=== PATIENT | female | born 1960 | race Caucasian/White ===

== ENCOUNTER 2022-03-16 15:32 | Outpatient (CLI) | payer OTHER, SELFPAY ==
[2022-03-16 22:03] LABS: Albumin* 5.1 g/dL (3.3-5.0)
[2022-03-16 22:04] LABS: Chloride* 97 mmol/L (96-114); Potassium* 4.5 mmol/L (3.6-5.1)
[2022-03-16 22:06] LABS: Bilirubin Total* 0.6 mg/dL (0.1-1.5); Creatinine* 0.5 mg/dL (0.5-1.5); Estimated Glomerular Filt Rate 106 ml/min; Total Protein* 7.9 g/dL (6.0-8.3)
[2022-03-16 22:07] LABS: Blood Urea Nitrogen* 13 mg/dL (7-30); Glucose* 81 mg/dL (60-115)
[2022-03-16 22:47] LABS: Sodium* 139 mmol/L (135-149)
[2022-03-16 22:49] LABS: Carbon Dioxide* 29 mmol/L (20-32); Cholesterol* 283 mg/dL (90-199)
[2022-03-16 22:50] LABS: Alanine Aminotransferase* 49 U/L (4-35); Alkaline Phosphatase* 59 U/L (40-150); Aspartate Amino Transferase* 45 U/L (12-35); Triglycerides* 81 mg/dL (40-149)
[2022-03-16 23:08] LABS: HDL Cholesterol* 199 mg/dL (>=50); LDL Cholesterol Calculated 68 mg/dL (<100)
== END 2022-03-16 15:33 | disposition home or self-care (01) ==
PROVIDERS: PCP Internal Medicine; Visit Provider Emergency Medicine
DX: E78.5 Hyperlipidemia, unspecified (principal); I10 Essential (primary) hypertension
CPT/HCPCS: 80053; 80061

== ENCOUNTER 2022-08-14 09:01 | Outpatient (CLI) | payer OTHER, SELFPAY ==
--- NOTE | 2022-08-14 09:15 | CRLHL7_ITS ---
For Patients: As a result of the Century Cures Act, medical imaging exams and procedure reports are released immediately into your electronic medical record. You may view this report before your referring provider. If you have questions, please contact your health care provider. BILATERAL DIGITAL SCREENING MAMMOGRAM WITH COMPUTER-AIDED DETECTION CLINICAL HISTORY: Routine screening exam. COMPARISON: 07/12/2021, 06/04/2020, 05/16/2019, 04/02/2018. TECHNIQUE: Digital mammogram in CC and MLO projections including computer-aided detection (CAD). BREAST COMPOSITION: The breasts are extremely dense, which lowers the sensitivity of mammography. FINDINGS: RIGHT Breast: No suspicious findings. LEFT Breast: Loose grouping of punctate calcifications within the lateral breast 7 cm from the nipple. IMPRESSION: LEFT breast calcifications. RECOMMENDATIONS: Spot compression magnification views of the calcifications in the LEFT breast in CC and ML projections. BI-RADS Category 0: Incomplete: Need additional Imaging Evaluation and/or Prior Mammograms for Comparison [facility] will contact the patient for follow-up. A lay language report of this examination will be provided to the patient. Dictated by Gagan Urbano MD @ 08/14/2022 11:07:26 AM jj/Dictated by: Gagan Urbano MD @ 08/14/2022 11:07:00 AM (Electronically Signed)
== END 2022-08-14 09:02 | disposition home or self-care (01) ==
LOC: MAMMO 09:02
PROVIDERS: PCP Internal Medicine; Visit Provider Internal Medicine
DX: Z12.31 Encounter for screening mammogram for malignant neoplasm of breast (principal); R92.2 Inconclusive mammogram; R92.1 Mammographic calcification found on diagnostic imaging of breast
CPT/HCPCS: 77063; 77067

== ENCOUNTER 2022-08-18 09:31 | Outpatient (CLI) | payer OTHER, SELFPAY ==
--- NOTE | 2022-08-18 09:45 | CRLHL7_ITS ---
For Patients: As a result of the Cures Act, medical imaging exams and procedure reports are released immediately into your electronic medical record. You may view this report before your referring provider. If you have questions, please contact your health care provider. DIGITAL DIAGNOSTIC LEFT MAMMOGRAM WITH COMPUTER-AIDED DETECTION CLINICAL HISTORY: LEFT breast calcifications. COMPARISON: 08/14/2022, 07/12/2021, 06/04/2020, 05/16/2019. TECHNIQUE: Digital LEFT mammogram in three projections. Computer-aided detection utilized. BREAST COMPOSITION: The breast is heterogeneously dense, which may obscure small masses. FINDINGS: Spot magnification CC/true lateral LEFT breast mammogram images submitted along with an open true lateral LEFT breast mammogram. Scattered punctate calcifications are present within the outer LEFT breast without pleomorphism. No suspicious mass. IMPRESSION: Loosely grouped punctate benign-appearing calcifications within the lateral LEFT breast. No evidence of malignancy. RECOMMENDATIONS: Annual BILATERAL screening mammography. Results and recommendations discussed with the patient. BI-RADS Category 2: Benign A lay language report of this examination will be provided to the patient. Dictated by Gagan Urbano MD @ 08/18/2022 11:41:09 AM jj/Dictated by: Gagan Urbano MD @ 08/18/2022 11:41:00 AM (Electronically Signed)
== END 2022-08-18 09:32 | disposition home or self-care (01) ==
LOC: MAMMO 09:32
PROVIDERS: PCP Internal Medicine; Visit Provider Emergency Medicine
DX: R92.1 Mammographic calcification found on diagnostic imaging of breast (principal); R92.2 Inconclusive mammogram
CPT/HCPCS: 77065

== ENCOUNTER 2022-11-15 15:40 | Outpatient (CLI) | payer OTHER, SELFPAY | END 2022-11-15 15:41 | disposition home or self-care (01) | PROVIDERS: PCP Emergency Medicine; Visit Provider Emergency Medicine | DX: Z00.00 Encounter for general adult medical examination without abnormal findings (principal); E83.52 Hypercalcemia; R77.9 Abnormality of plasma protein, unspecified; R74.01 Elevation of levels of liver transaminase levels; I10 Essential (primary) hypertension; E78.5 Hyperlipidemia, unspecified | CPT/HCPCS: 80048; 80076 ==

== ENCOUNTER 2022-11-23 14:10 | Outpatient (CLI) | payer OTHER, SELFPAY ==
--- NOTE | 2022-11-23 14:00 | CRLHL7_ITS ---
For Patients: As a result of the Century Cures Act, medical imaging exams and procedure reports are released immediately into your electronic medical record. You may view this report before your referring provider. If you have questions, please contact your health care provider. INDICATION: Lung cancer screening. History of smoking. High risk patient with greater than 25 pack-year smoking history. TECHNIQUE: Low-dose lung cancer screening non-contrast CT chest. Dose reduction techniques were used. COMPARISON: 07/12/2018 FINDINGS: NODULES: None. LUNGS AND PLEURA: Mild emphysematous changes. No infiltrate. MEDIASTINUM: No adenopathy. CORONARY ARTERY CALCIFICATION: None. LIMITED UPPER ABDOMEN: Normal. MUSCULOSKELETAL: Normal. IMPRESSION: Negative for lung cancer screening purposes. LUNG-RADS CATEGORY: 1: Negative. RADIOLOGIST RECOMMENDATION: Continue annual screening with low-dose CT chest in 12 months. Please note that all CT scans at this facility use dose modulation, iterative reconstruction, and/or weight-based dosing when appropriate to reduce radiation dose to as low as reasonably achievable. Dictated by Gagan Urbano MD @ 11/24/2022 12:30:23 PM (Electronically Signed)
== END 2022-11-23 14:11 | disposition home or self-care (01) ==
LOC: CT 14:11
PROVIDERS: PCP Emergency Medicine; Visit Provider Emergency Medicine
DX: Z12.2 Encounter for screening for malignant neoplasm of respiratory organs (principal); Z87.891 Personal history of nicotine dependence
CPT/HCPCS: 71271

== ENCOUNTER 2022-11-30 14:52 | Outpatient (CLI) | payer OTHER, SELFPAY | END 2022-11-30 14:53 | disposition home or self-care (01) | PROVIDERS: PCP Emergency Medicine; Visit Provider Emergency Medicine | DX: E83.52 Hypercalcemia (principal); R74.01 Elevation of levels of liver transaminase levels; I10 Essential (primary) hypertension; E78.5 Hyperlipidemia, unspecified; R77.9 Abnormality of plasma protein, unspecified | CPT/HCPCS: 82306; 82310; 83970; 84165 ==

== ENCOUNTER 2023-09-11 09:44 | Outpatient (CLI) | payer OTHER, SELFPAY ==
--- NOTE | 2023-09-11 09:45 | CRLHL7_ITS ---
For Patients: As a result of the Century Cures Act, medical imaging exams and procedure reports are released immediately into your electronic medical record. You may view this report before your referring provider. If you have questions, please contact your health care provider. BILATERAL SCREENING MAMMOGRAM WITH COMPUTER-AIDED DETECTION AND TOMOSYNTHESIS TECHNIQUE: CC and MLO views were obtained. These mammographic images have been obtained using full-field digital technique. These mammographic images were interpreted with the benefit of computer-aided detection. Breast Tomosynthesis was used in this interpretation. COMPARISON FILM: 08/14/22, 07/12/21, 06/04/20. FINDINGS: The breasts are heterogeneously dense, which may obscure small masses IMPRESSION: There is no radiographic evidence for malignancy. ASSESSMENT: BI-RADS Category 2: Benign RECOMMENDATION: Routine screening mammogram in 1 year. A lay language report of this examination will be provided to the patient. Gagan Urbano M.D. Diagnostic Radiologist [email or web address] JEY/Dictated by: Gagan Urbano MD @ 09/12/2023 9:45:00 AM (Electronically Signed)
== END 2023-09-11 09:45 | disposition home or self-care (01) ==
LOC: MAMMO 09:45
PROVIDERS: PCP Emergency Medicine; Visit Provider Emergency Medicine
DX: Z12.31 Encounter for screening mammogram for malignant neoplasm of breast (principal); R92.2 Inconclusive mammogram
CPT/HCPCS: 77063; 77067

== ENCOUNTER 2023-11-28 10:56 | Outpatient (CLI) | payer OTHER, SELFPAY ==
--- NOTE | 2023-11-28 11:00 | CRLHL7_ITS ---
For Patients: As a result of the Century Cures Act, medical imaging exams and procedure reports are released immediately into your electronic medical record. You may view this report before your referring provider. If you have questions, please contact your health care provider. INDICATION: Lung cancer screening. TECHNIQUE: Noncontrast CT images of the chest. COMPARISON: None. FINDINGS: Calcified granuloma is in the right lung. Stable solid 3 mm nodule along the right minor fissure (series 3 image 69). No focal consolidation, pleural effusion, or pneumothorax. Mild scarring/atelectasis in the lingula. The heart size is normal. No pericardial effusion. Minimal coronary artery atherosclerotic calcifications. No mediastinal or hilar lymphadenopathy. Limited images through the upper abdomen are unremarkable. Multilevel thoracic spondylosis. No aggressive osseous lesions. IMPRESSION: Stable small right perifissural pulmonary nodule. Lung rads category 2, benign. Continue annual screening with low-dose chest CT in 12 months. Please note that all CT scans at this facility use dose modulation, iterative reconstruction, and/or weight-based dosing when appropriate to reduce radiation dose to as low as reasonably achievable. Dictated by Russ Norwood MD @ 11/28/2023 5:29:17 PM (Electronically Signed)
== END 2023-11-28 10:57 | disposition home or self-care (01) ==
LOC: CT 10:57
PROVIDERS: PCP Emergency Medicine; Visit Provider Emergency Medicine
DX: Z12.2 Encounter for screening for malignant neoplasm of respiratory organs (principal); R91.8 Other nonspecific abnormal finding of lung field; Z87.891 Personal history of nicotine dependence
CPT/HCPCS: 71271

== ENCOUNTER 2024-02-13 13:47 | Outpatient (CLI) | payer OTHER, SELFPAY | END 2024-02-13 13:48 | disposition home or self-care (01) | LOC: NFLDREF 02-14 08:15 | PROVIDERS: PCP Emergency Medicine; Referring Provider Emergency Medicine; Visit Provider Emergency Medicine | DX: R10.2 Pelvic and perineal pain (principal) | CPT/HCPCS: 87086 ==

== ENCOUNTER 2024-02-27 15:53 | Outpatient (CLI) | payer OTHER, SELFPAY | END 2024-02-27 15:54 | disposition home or self-care (01) | LOC: NFLDREF 02-28 14:29 | PROVIDERS: PCP Emergency Medicine; Referring Provider Emergency Medicine; Visit Provider Emergency Medicine | DX: Z00.00 Encounter for general adult medical examination without abnormal findings (principal); I10 Essential (primary) hypertension; E78.5 Hyperlipidemia, unspecified; E83.52 Hypercalcemia; R10.2 Pelvic and perineal pain; R74.01 Elevation of levels of liver transaminase levels; Z78.9 Other specified health status; M19.90 Unspecified osteoarthritis, unspecified site | CPT/HCPCS: 80053; 80061; 86140; 86304 ==

== ENCOUNTER 2024-03-03 16:31 | Outpatient (CLI) | payer OTHER, SELFPAY ==
--- NOTE | 2024-03-03 16:45 | CRLHL7_ITS ---
For Patients: As a result of the Century Cures Act, medical imaging exams and procedure reports are released immediately into your electronic medical record. You may view this report before your referring provider. If you have questions, please contact your health care provider. Indication: Pelvic and perineal pain. Technique: Sonography of the pelvis was performed. The study was performed transabdominally and transvaginally. Grayscale and Doppler imaging was provided. Comparison: There are no prior studies for comparison Findings: The uterus measures 8.7 x 2.7 x 4.9 centimeters. Myometrium is normal and echotexture without focal myometrial mass. The endometrium measures 3 millimeters which is normal. The right ovary is enlarged measuring 4.6 x 3.5 x 3.1 centimeters. This contains a hypoechoic structure measuring 3.7 x 3.0 x 2.7 centimeters. This probably represents an ovarian cyst though the wall margins are somewhat irregular and there are scant internal echoes. Consider an MRI with gadolinium for further evaluation and to assess for any abnormal enhancing component of this lesion. There is no evidence of torsion. The left ovary measures 2.1 x 1.1 x 1.1 centimeters and appears normal. There is no evidence of torsion. No free fluid in the cul de sac. Impression: 1. Nearly completely cystic structure occupying a significant portion of the right ovary measuring 3.7 x 3.0 x 2.7 centimeters. No evidence of torsion. This is probably benign. However, given the history of pain and minimal complexity, recommend an MRI with gadolinium to assess for any suspicious enhancing component. 2. The left ovary, uterus and endometrium appear normal. 3. No free fluid. Dictated by Jerson Ojeda MD @ 03/04/2024 9:40:25 AM (Electronically Signed)
== END 2024-03-03 16:32 | disposition home or self-care (01) ==
LOC: US 16:33
PROVIDERS: PCP Emergency Medicine; Visit Provider Emergency Medicine
DX: R10.2 Pelvic and perineal pain (principal); N83.201 Unspecified ovarian cyst, right side
CPT/HCPCS: 76830; 76856; 93976

== ENCOUNTER 2024-03-19 13:32 | Outpatient (CLI) | payer OTHER, MEDICARE, SELFPAY ==
--- NOTE | 2024-03-19 14:00 | CRLHL7_ITS ---
For Patients: As a result of the Century Cures Act, medical imaging exams and procedure reports are released immediately into your electronic medical record. You may view this report before your referring provider. If you have questions, please contact your health care provider. INDICATION: Noninflammatory disorder of ovary fallopian tubes and broad ligament TECHNIQUE: CT abdomen and pelvis with 61 mL Isovue 370. COMPARISON: None. FINDINGS: Lower chest: Unremarkable. Liver: Normal in size and attenuation. No suspicious masses. Gallbladder and bile ducts: No stones or inflammation. No biliary dilatation. Pancreas: Unremarkable. No mass or inflammation. Spleen: Normal in size. No masses. Adrenal glands: Normal in size. No nodules. Kidneys: Too small to characterize low-attenuation lesion right kidney. GI tract: Unremarkable. Normal in caliber. No sign of mass or inflammation. 3 centimeter peripherally calcified mass .This probably reflects an appendiceal mucocoele . Vasculature: Abdominal aorta is normal in caliber. Lymph nodes: No lymphadenopathy. Peritoneum/Abdominal Wall: Unremarkable. No sign of mass or infiltration. No free air or significant free fluid. Pelvis: Right adnexal 3 centimeter peripherally calcified . This abuts the right ovary but likely reflects the appendx. Bones: Unremarkable for age. IMPRESSION: 1 .3 centimeter peripherally calcified mass .This probably reflects an appendiceal mucocoele .Surgical consultation is recommended, Please note that all CT scans at this facility use dose modulation, iterative reconstruction, and/or weight-based dosing when appropriate to reduce radiation dose to as low as reasonably achievable. Dictated by Amanda Davey MD @ 03/21/2024 6:05:05 AM (Electronically Signed)
== END 2024-03-19 13:33 | disposition home or self-care (01) ==
LOC: CT 13:37
PROVIDERS: PCP Emergency Medicine; Visit Provider Emergency Medicine
DX: N83.8 Other noninflammatory disorders of ovary, fallopian tube and broad ligament (principal); R19.00 Intra-abdominal and pelvic swelling, mass and lump, unspecified site
CPT/HCPCS: 74177; Q9967

== ENCOUNTER 2024-04-03 16:48 | Outpatient (CLI) | payer OTHER, MEDICARE, SELFPAY | END 2024-04-03 16:49 | disposition home or self-care (01) | PROVIDERS: PCP Emergency Medicine; Referring Provider Emergency Medicine; Visit Provider Emergency Medicine | DX: I10 Essential (primary) hypertension (principal); E87.1 Hypo-osmolality and hyponatremia; D37.3 Neoplasm of uncertain behavior of appendix; R10.2 Pelvic and perineal pain | CPT/HCPCS: 80048; 86304; 86305 ==

== ENCOUNTER 2024-04-24 14:49 | Outpatient (CLI) | payer MEDICARE, SELFPAY | END 2024-04-24 14:50 | disposition home or self-care (01) | LOC: LKVREF 14:49 | PROVIDERS: PCP Emergency Medicine; Visit Provider Emergency Medicine | DX: I10 Essential (primary) hypertension (principal) | CPT/HCPCS: 80048 ==

== ENCOUNTER 2024-04-28 10:20 | Outpatient (CLI) | payer MEDICARE, SELFPAY | END 2024-04-28 10:21 | disposition home or self-care (01) | LOC: NFLDREF 05-05 15:47 | PROVIDERS: PCP Emergency Medicine; Referring Provider Emergency Medicine; Visit Provider Emergency Medicine | DX: E87.5 Hyperkalemia (principal) | CPT/HCPCS: 84132 ==

== ENCOUNTER 2024-04-29 06:13 | Day surgery (SDC) | payer MEDICARE, SELFPAY ==
[2024-04-29] VITALS (12 sets, daily range): BP systolic 99–137; BP diastolic 63–87; PULSE 62–88; RESP 16–20; TEMP 36.1–37; O2SAT 96–100; BMI 24.5
[2024-04-29] MEDS: SODIUM CHLORIDE 0.9 % (FLUSH) 10 ML SYRINGE IVF (07:13)
[2024-04-29] MEDS: LACTATED RINGERS 1000 ML 1,000 ML 100 ML IV (07:13)
--- NOTE | 2024-04-29 07:15 | W.PM.H&PU ---
History & Physical Update History & Physical Update H&P Reviewed and patient assessed: No changes noted
--- NOTE | 2024-04-29 07:16 | P.GSOP_ITS ---
Operative Note Date of procedure: 04/29/24 Pre-op diagnosis: 1. Possible appendiceal mucocele versus ovarian cyst. Post-op diagnosis: 1. 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 Type of Procedure: 1. Diagnostic laparoscopy. 2. Laparoscopic appendectomy. Indications: 64-year-old female with cochlear implant was seen in clinic for evaluation of right lower quadrant mass. Patient states that 6 months ago she started to experience discomfort in the right lower quadrant. Upon her workup she had an abdominal and transvaginal ultrasound that showed 3.7 x 3 cm mass that was thought to be adnexal, however it was difficult to tell if it was originated from the ovary. Patient was then referred for CT scan since she was not able to have an MRI due to her cochlear implant. Abdominal CT showed partially calcified 3 cm hypoechoic circumscribed structure in the right lower quadrant. The radiologist felt like it was originating from the large intestine and was thought to be an appendiceal mucocele. Patient did not have any evidence obstruction. She was having daily bowel movements. She had a colonoscopy in October of 2023 and had 3 small tubular adenomas removed. On clinical exam patient had some discomfort to palpation in right lower quadrant with no peritoneal signs. She also had evidence of a small umbilical hernia. Given patient's clinical history and her imaging findings, it was difficult to tell if her hypoechoic mass originated from the right ovary or appendix. Since patient was not able to have a pelvic MRI, a diagnostic laparoscopy was recommended. The procedure was discussed in detail. If during her diagnostic laparoscopy the mass was originating from the appendix, I recommended to proceed with right hemicolectomy due to the concern of this being appendiceal mucocele. If the mass is adnexal, patient was seen by OBGYN surgeons and bilateral salpingo- oophorectomy was recommended. Please see their note for more detail. The procedure of right hemicolectomy was discussed in detail. The risks associated procedure including infection, bleeding, injury to intra-abdominal organs, lex stomotic leak, and the need to stay in the hospital for a few days were all discussed with the patient, and she agreed to proceed. Procedure Description: After discussing the risks and benefits of the procedure, the patient signed informed consent.? The operative site was marked and the patient was brought to the operating room and placed on the operating table in supine position.? Care was taken to pad the patient's pressure points.?? The patient was then Intubated by anesthesia.?? The operative site was then prepped and draped in the usual nicki rile fashion.? A time-out was then performed. A 5-mm laparoscopy port was placed in the left upper quadrant guided by a 5-mm laparoscope placed into a translucent trochar. Passage through the layers of the abdominal wall was visualized with the laparoscope. A pneumoperitoneum was established. A 30-degree 5-mm laparoscope was advanced into the abdomen. The abdomen was briefly surveyed, and there was no evidence of mucus or peritoneal studding. a 5 mm port was then placed in the left lower abdomen. The patient was then placed in the Trendelenburg position and right ovary was identified. The right ovary appeared normal. The left ovary was also examined and appeared normal with no ovarian cyst. I then turned my attention to the right colon and appendix. Appendix was identified and the tip of the appendix was dilated. This was the hypoechoic mass seen in patients imaging. The appendix dilation was tapering towards its base and the base of the appendix appeared normal. There was no mucin adjacent to the appendix and there was no inflammation of the appendix. I scrubbed out of the case and discussed with the patient's that I would plan on proceeding with laparoscopic appendectomy. Patient's was in agreement with this plan, and he is aware that if there are any malignant cells seen in the appendix, patient potential would need additional surgery. The left lower quadrant port was then upsized to 12 mm port. An additional 5- mm port were placed in the suprapubically, respectively, under direct visualization by laparoscope. The patient remainedin Trendelenburg position, allowing the abdominal contents to shift cephalad. The appendeceal mesentery was grasped and dissected from the peritoneum using Harmonic scalpel. Care was taken during this dissection not to injure the appendix or rupture the appendix. A [place] clamp was passed between the appendiceal mesentery and the base of the appendix, creating a window. A vascular load Endo-CORY stapler was advanced through the 12-mm port into the abdomen and appendix was stapled off at its base. The appendiceal mesentery was Further skeletonized with a Harmonic scalpel. The appendiceal artery and vein were identified. Those were clipped with 5 mm vascular clips on the patient's side and divided with Harmonic on the specimen side. When the appendix was free, it was then placed in an endoscopic retrieval bag. the 12 mm port was removed and the fascial incision was enlarged to accommodate remove the appendix without pressure applied to the appendix to avoid spillage of mucin. The Endo catch bag containing the appendix was easily removed from the abdomen. The appendix was sent to pathology. The left lower quadrant 12 mm port fascia was closed with a running 0-0 Vicryl suture. The surgical field was examined and no bleeding was seen from the appendiceal staple line or appendiceal mesentery. The 5-mm port was removed under direct visualization. The left upper quadrant port was used to evacuate the pneumoperitoneum and then withdrawn. The skin incisions were closed with 4-0 monocryl. Steri-Strips were applied over the incisions. All counts were correct at the end of the case. The patient tolerated this procedure well and was transferred to PACU in stable condition. Findings: dilated distal half of the appendix with the tip of the appendix containing fluid filled dilation. The base of the appendix was normal in appearance and laparoscopic appendectomy was performed. Bilateral ovaries and tubes appeared normal. Anesthesia: GETA Surgeon: Adelina Vazquez MD Estimated blood loss (mL): 5 Specimen: Appendix Condition: stable Disposition: PACU
--- NOTE | 2024-04-29 07:23 | W.PM.H&PU ---
History & Physical Update History & Physical Update H&P Updates: Ms. Louis is seen in pre-op prior to planned diagnostic laparoscopy with Dr. Vazquez due to appendiceal versus right adnexal mass. If the mass is noted to be adnexal, I will plan to proceed with a laparoscopic bilateral salpingo oophorectomy. If appendiceal, I will not be involved in her case. No interval change to her health history or questions today. We again reviewed the risks, benefits and alternatives to the planned procedure. Written consent was re-signed. Post-procedure restrictions and expectations reviewed. No perioperative antibiotics indicated from a gynecologic perspective, defer to Dr. Vazquez.
[2024-04-29] MEDS: ERTAPENEM 1 GM inj IVPB (07:40)
[2024-04-29] MEDS: LACTATED RINGERS 500 ML 500 ML IV (08:33)
[2024-04-29] MEDS: LIDOCAINE 1%-EPI 1:100,000 20 ML INFILTRATI (08:45)
[2024-04-29] MEDS: BUPIVACAINE 0.25% 30 ML INJECTION (08:45)
--- NOTE | 2024-04-29 08:59 | P.ANES_ITS ---
Anesthesia Charges Start Date/Time Anesthesia Start Date: 04/29/24 Anesthesia Start Time: 07:30 Stop Date/Time Anesthesia Stop Date: 04/29/24 Anesthesia Stop Time: 08:59 Coding CPT Codes CPT Codes: ANESTH SURG LOWER ABDOMEN - 70278 ([id number]) P2 - PATIENT W/MILD SYST DISEASE, QK - BRAKE TESTER 2-4 CNCRNT ANES PROC, QX - BLOOD BANK SPECIALIST SVC W/ MD MED DIRECTION
--- NOTE | 2024-04-29 08:59 | W.ANESCHARGE ---
Anesthesia Charges Start Date/Time Anesthesia Start Date: 04/29/24 Anesthesia Start Time: 07:30 Stop Date/Time Anesthesia Stop Date: 04/29/24 Anesthesia Stop Time: 08:59 Coding CPT Codes CPT Codes: ANESTH SURG LOWER ABDOMEN - 75135 ([id number]) P2 - PATIENT W/MILD SYST DISEASE, QK - POT LINING SUPERVISOR 2-4 CNCRNT ANES PROC, QX - VASCULAR ULTRASOUND TECHNICIAN SVC W/ MD MED DIRECTION
--- NOTE | 2024-04-29 10:24 | P.ANES_ITS ---
Anesthesia Charges Start Date/Time Anesthesia Start Date: 04/29/24 Anesthesia Start Time: 07:30 Stop Date/Time Anesthesia Stop Date: 04/29/24 Anesthesia Stop Time: 08:59 Coding CPT Codes CPT Codes: ANESTH SURG LOWER ABDOMEN - 41374 ([id number]) QK - OFFSHORE WIND OPERATIONS MANAGER 2-4 CNCRNT ANES PROC, QX - MAP AND CHART MOUNTER SVC W/ MD MED DIRECTION, P2 - PATIENT W/MILD SYST DISEASE
--- NOTE | 2024-04-29 10:24 | W.ANESCHARGE ---
Anesthesia Charges Start Date/Time Anesthesia Start Date: 04/29/24 Anesthesia Start Time: 07:30 Stop Date/Time Anesthesia Stop Date: 04/29/24 Anesthesia Stop Time: 08:59 Coding CPT Codes CPT Codes: ANESTH SURG LOWER ABDOMEN - 81210 ([id number]) QK - BUILDING COORDINATOR 2-4 CNCRNT ANES PROC, QX - DIRECTOR MULTIPLE SCLEROSIS CENTER SVC W/ MD MED DIRECTION, P2 - PATIENT W/MILD SYST DISEASE
== END 2024-04-29 10:42 | disposition home or self-care (01) ==
LOC: MEDSURG 08:58 → SS 10:17
PROVIDERS: PCP Emergency Medicine; Visit Provider Surgery
PROC: (CPT 44970; principal; 2024-04-29 07:30)
DX: K38.8 Other specified diseases of appendix (principal)
CPT/HCPCS: 44970; 00840; 88304; A4314; J0330; J0665; J1100; J1335; J1885; J2250; J2371; J2405; J2704; J2710; J3010; J7120

== ENCOUNTER 2024-12-10 13:27 | Outpatient (CLI) | payer MEDICARE, SELFPAY ==
--- NOTE | 2024-12-10 13:40 | CRLHL7_ITS ---
For Patients: As a result of the Century Cures Act, medical imaging exams and procedure reports are released immediately into your electronic medical record. You may view this report before your referring provider. If you have questions, please contact your health care provider. INDICATION: BILATERAL SCREENING MAMMOGRAM, ASYMPTOMATIC 64 Y/O FEMALE COMPARISON: 09/11/2023, 08/18/2022, 08/14/2022 TECHNIQUE: Digital mammogram in CC and MLO projections including computer-aided detection (CAD) and tomosynthesis. BREAST COMPOSITION: The breasts are extremely dense, which lowers the sensitivity of mammography. FINDINGS: No suspicious findings. ASSESSMENT: BI-RADS 2 Benign RECOMMENDATION: Annual screening mammogram. A lay language report of this examination will be provided to the patient. Dictated by: Gagan Urbano MD @ 12/11/2024 09:21:36 (Electronically Signed)
== END 2024-12-10 13:28 | disposition home or self-care (01) ==
LOC: MAMMO 13:28
PROVIDERS: PCP Emergency Medicine; Visit Provider Emergency Medicine
DX: Z12.31 Encounter for screening mammogram for malignant neoplasm of breast (principal); R92.343 Mammographic extreme density, bilateral breasts
CPT/HCPCS: 77063; 77067

== ENCOUNTER 2025-02-27 08:34 | Outpatient (CLI) | payer MEDICARE, SELFPAY | END 2025-02-27 08:35 | disposition home or self-care (01) | PROVIDERS: PCP Physician Assistant Medical; Visit Provider Physician Assistant Medical | DX: Z00.00 Encounter for general adult medical examination without abnormal findings (principal) | CPT/HCPCS: 80053; 80061 ==

== ENCOUNTER 2025-03-19 10:09 | Outpatient (CLI) | payer MEDICARE, SELFPAY | END 2025-03-19 10:10 | disposition home or self-care (01) | LOC: NFLDREF 03-24 08:12 | PROVIDERS: PCP Physician Assistant Medical; Referring Provider Physician Assistant Medical; Visit Provider Physician Assistant Medical | DX: D64.9 Anemia, unspecified (principal); Z79.899 Other long term (current) drug therapy | CPT/HCPCS: 82607; 82728; 82746; 83540; 83550 ==